=== PATIENT | male | born 2000 | race African-American/Black ===

== ENCOUNTER 2022-07-22 19:17 | Emergency (ER) | payer SELFPAY | END 2022-07-22 22:08 | disposition home or self-care (01) | LOC: CSHERS 19:17 | DX: B34.9 Viral infection, unspecified (principal); Z20.822 Contact with and (suspected) exposure to COVID-19; F17.290 Nicotine dependence, other tobacco product, uncomplicated | CPT/HCPCS: 99284; U0003; U0005 ==